=== PATIENT | male | born 2000 | race Caucasian/White ===

== ENCOUNTER 2021-09-25 10:21 | Emergency (ER) | payer OTHER ==
[~2021-09-25] VITALS: Ht 177.8 cm; Wt 80.9 kg
[2021-09-25] MEDS ORDERED: IBUPROFEN 400 MG TABLET PO ONE (12:15)
[2021-09-25] MEDS ORDERED: LIDOCAINE 5% TRANSDERMAL PATCH TD ONE (12:15)
[2021-09-25] MEDS ORDERED: ACETAMINOPHEN 325 MG TABLET PO ONE (12:15)
[2021-09-25] MEDS ORDERED: NAPR-1025 PO (13:05)
[2021-09-25] MEDS ORDERED: DIAZEPAM 5 MG TABLET PO ONE (13:30)
[2021-09-25] MEDS ORDERED: MORPHINE SULFATE 15 MG IR TABLET PO ONE (14:00)
[2021-09-25 14:40] VITALS: BP 132/71
== END 2021-09-25 15:26 | disposition home or self-care (01) ==
LOC: EMS 10:24
DX: M54.50 Low back pain, unspecified (principal); F12.90 Cannabis use, unspecified, uncomplicated; F17.210 Nicotine dependence, cigarettes, uncomplicated
CPT/HCPCS: 99284; Z7502; Z7610